=== PATIENT | female | born 1945 | race Caucasian/White ===

== ENCOUNTER 2020-12-21 08:08 | Outpatient (CLI) | payer MEDICARE ==
[2020-12-22 11:55] LABS: SARS-CoV-2 PCR by NAA Not Detected (NotDetected)
== END 2020-12-21 08:09 | disposition home or self-care (01) ==
LOC: LABBT 08:08
PROVIDERS: ATTEND Ophthalmology Retina Specialist
DX: Z01.812 Encounter for preprocedural laboratory examination (principal); H33.21 Serous retinal detachment, right eye; Z20.822 Contact with and (suspected) exposure to COVID-19
CPT/HCPCS: U0003; U0005

== ENCOUNTER 2020-12-23 09:50 | Day surgery (SDC) | payer MEDICARE ==
[~2020-12-23 09:50] MED LIST: Fentanyl 100 MCG/2 ML VIAL ONE; Fluorouracil 100 MG, Enoxaparin Sodium 25 MG, EPINEPHrine 0.3 MG in Ophthalmic Irrigati... IRR SCH; Midazolam HCl 2 mg/2 ml Vial ONE
[2020-12-23] MEDS ORDERED: Cyclopentolate 1% Opth Drop 2 ML BOT ONE (10:17)
[2020-12-23] MEDS ORDERED: Phenylephrine 2.5% Ophth Soln 5 ML BOT ONE (10:18)
[2020-12-23] MEDS ORDERED: Lidocaine 4% PF 5 ML AMP ONE (12:12)
[2020-12-23] MEDS ORDERED: Triamcinolone 40 MG/ML VIAL ONE (12:12)
[2020-12-23] MEDS ORDERED: CEFAZOLIN 1 GM VIAL ONE (12:12)
[2020-12-23] MEDS ORDERED: Maxitrol 0.1% Opth Oint 3.5 GM TUBE ONE (12:12)
[2020-12-23] MEDS ORDERED: Bupivacaine PF 0.75% SDV 10 ML ONE (12:12)
[2020-12-23] MEDS ORDERED: Enoxaparin Sodium 30 MG/0.3 ML SYRINGE ONE (12:12)
[2020-12-23] MEDS ORDERED: Lidocaine 1% PF 5 ML VIAL ONE (12:12)
[2020-12-23] MEDS ORDERED: PROPOFOL 200 MG/20 ML VIAL ONE (12:12)
== END 2020-12-23 14:33 | disposition home or self-care (01) ==
LOC: SDC 09:50
PROVIDERS: ATTEND Ophthalmology Retina Specialist
PROC: 08T43ZZ Resection of Right Vitreous, Percutaneous Approach (ICD-10-PCS; principal; 2020-12-23)
DX: H33.011 Retinal detachment with single break, right eye (principal); G43.909 Migraine, unspecified, not intractable, without status migrainosus; E20.9 Hypoparathyroidism, unspecified; Z79.82 Long term (current) use of aspirin; Z79.899 Other long term (current) drug therapy; Z88.2 Allergy status to sulfonamides; Z98.41 Cataract extraction status, right eye; Z98.42 Cataract extraction status, left eye; Z96.1 Presence of intraocular lens
CPT/HCPCS: 67025; J0171; J0690; J1650; J2250; J2704; J3010; J3301; J3490; J9190